=== PATIENT | male | born 1955 | race Caucasian/White ===

== ENCOUNTER 2018-08-01 13:27 | Observation (INO) | payer BC ==
--- NOTE | 2018-08-01 13:52 | ED ---
Dizziness - HPI Summary HPI Summary: This patient is a 63 year old M presenting to [facility] accompanied by his with a chief complaint of dizziness for the past two days. Dizziness is described as room spinning. Dizziness is exacerbated by head movement. Patient reports nausea, vomiting, and occipital and frontal headache. He reports a history of similar symptoms that typically resolve with rest. Patient denies recent URI, CP, SOB, and ear pain. Patient reports a history of lupus, DM , and HTN - History Of Current Complaint Chief Complaint: EDDizziness Stated Complaint: DIZZINESS Time Seen by Provider: 08/01/18 13:40 Hx Obtained From: Patient Onset/Duration: Still Present Timing: Constant Character: Room Spinning Aggravating Factor(s): Change In Head Position Alleviating Factor(s): Nothing Associated Signs And Symptoms: Positive: Nausea. Negative: Chest Pain, SOB - Allergies/Home Medications Allergies/Adverse Reactions: Allergies Allergy/AdvReac Type Severity Reaction Status Date / Time erythromycin base Allergy Hives Verified 08/01/18 14:59 Fish Containing Products Allergy See Comment Verified 08/01/18 14:59 gluten Allergy See Comment Verified 08/01/18 14:59 melon Allergy See Comment Verified 08/01/18 15:43 palm oil Allergy See Comment Verified 08/01/18 15:43 plum Allergy See Comment Verified 08/01/18 15:43 Anima, Nut, and Seed proteins Allergy See Comment Uncoded 09/03/17 10:58 animal proteins Allergy See Comment Uncoded 08/01/18 17:42 Home Medications: Home Medications Aspirin [Aspirin EC] 3 tab PO DAILY 08/01/18 [History Confirmed 08/01/18] Calcium Carbonate CHEW TAB* [Tums*] 1 - 2 tab PO Q4H PRN 08/01/18 [History Confirmed 08/01/18] Insulin Degludec [Tresiba Flextouch U-200] 100 units SUBCUT BEDTIME 08/01/18 [ History Confirmed 08/01/18] Levothyroxine Sodium 200 mcg PO QAM 08/01/18 [History Confirmed 08/01/18] Losartan Potassium [Cozaar] 50 mg PO BEDTIME 08/01/18 [History Confirmed ] Prasterone (Dhea) [Dhea] 50 mg PO BID 08/01/18 [History Confirmed 08/01/18] PMH/Surg Hx/FS Hx/Imm Hx Endocrine/Hematology History: Reports: Hx Diabetes, Other Endocrine/ Hematological Disorders - Lupus Cardiovascular History: Denies: Hx Hypertension, Hx Pacemaker/ICD History: Denies: Hx Dialysis, Hx Renal Disease Sensory History: Denies: Hx Hearing Aid Psychiatric History: Denies: Hx Panic Disorder - Surgical History Surgery Procedure, Year, and Place: [facility] 1978. APPENDIX. CARDIAC STENTS X5 PT DOES NOT HAVE IMPLANT CARDS - [place] [facility] [place] [place] Infectious Disease History: No Infectious Disease History: Denies: Traveled Outside the [place] in Last 30 Days - Family History Known Family History: Positive: Other - father - TIA, mother - vertigo - Social History Alcohol Use: None Alcohol Amount: 2 drinks/week Substance Use Type: Reports: None Smoking Status (MU): Former Smoker Have You Smoked in the Last Year: No Review of Systems Negative: Ear Ache Negative: Chest Pain Negative: Shortness Of Breath Positive: Vomiting, Nausea Neurological: Other - dizziness Positive: Headache All Other Systems Reviewed And Are Negative: Yes Physical Exam Triage Information Reviewed: Yes Vital Signs On Initial Exam: Initial Vitals Temp Pulse Resp BP Pulse Ox 97.3 F 79 16 175/82 99 08/01/18 13:31 08/01/18 13:31 08/01/18 13:31 08/01/18 13:31 08/01/18 13:31 Vital Signs Reviewed: Yes - Amber Coma Scale Best Eye Response: 4 - Spontaneous Best Motor Response: 6 - Obeys Commands Best Verbal Response: 5 - Oriented Coma Scale Total: 15 Diagnostics - Vital Signs Vital Signs Temp Pulse Resp BP Pulse Ox 08/01/18 13:31 97.3 F 79 16 175/82 99 - Laboratory Result Diagrams: 08/01/18 14:37 08/01/18 14:37 Lab Statement: Any lab studies that have been ordered have been reviewed, and results considered in the medical decision making process. - Radiology CXR Radiology Interpretation Completed By: Radiologist - HYPERINFLATION. NO ACTIVE CARDIOPULMONARY DISEASE. ED Physician has reviewed this report. - CT Brain CT CT Interpretation Completed By: Radiologist - NO ACUTE INTRACRANIAL PATHOLOGY. EXOPHTHALMOS. ED Physician has reviewed this report. - EKG 1340 Cardiac Rate: NL - 69 BPM EKG Rhythm: Sinus Rhythm EKG Interpretation: no ST elevations Dizzy Course/Dx - Course Assessment/Plan: This patient is a 63 year old M presenting to [facility] accompanied by his with a chief complaint of dizziness for the past two days. Dizziness is described as room spinning. Dizziness is exacerbated by head movement. Patient reports nausea, vomiting, and occipital and frontal headache. Patient denies recent URI, CP, SOB, and ear pain. Patient reports a history of lupus, DM, and HTN. Neurological exam found to be within normal limits. The NIH score is equal to 0. Patient does not have any nystagmus. In the ED course the patient was given IV fluids, Zofran for nausea vomiting, and meclizine and Ativan for the dizziness. Blood work is found to be within normal limits except for chloride of 99, glucose 258, CRP 11.3, urinalysis is negative for UTI. Chest x-ray impression: Hyperinflation. No active cardiopulmonary disease. Head CT impression: No acute intracranial pathology. Extraocular movements. At this time I reexamined the patient and he is neurological exam is also intact. Then, I tried to ambulate the patient and he still having dizziness and seemed to be having an unsteady gait. Therefore, at this time I ordered an MRI to rule out a posterior infarct. I discussed my physical exam and findings with Dr. Dillon from neurology and he agrees with management at this point. He agrees with admission and he will consult for this patient. He also requested to give him aspirin and statin. At this point I discussed my physical exam, findings and test results with Dr. Monroe from the hospital services who accepted the patient for admission. - Diagnoses Differential Diagnosis/HQI/PQRI: Anxiety, CVA, Dysrhythmia, Labyrinthitis, Meniere's Disease, Seizure, Transient Ischemic Attack, Vasovagal Reaction Provider Diagnoses: Vertigo - Provider Notifications Discussed Care Of Patient With: [place] Monroe - hospitalist Time Discussed With Above Provider: 16:15 Instructed by Provider To: Admit As Inpatient Discharge - Sign-Out/Discharge Documenting (check all that apply): Patient Departure - admit - Discharge Plan Condition: Stable Disposition: ADMITTED TO [facility] - Billing Disposition and Condition Condition: STABLE Disposition: Admitted to [facility] - Attestation Statements Document Initiated by Scribe: Yes Documenting Scribe: Kady Jain Provider For Whom Scribe is Documenting (Include Credential): Neo Mae MD Scribe Attestation: I, Kady Jain, scribed for Neo Mae MD on 08/01/18 at 1844. Scribe Documentation Reviewed: Yes Provider Attestation: The documentation as recorded by the scribe, Kady Jain accurately reflects the service I personally performed and the decisions made by me, Neo Mae MD NIH Scale - NIH Scale Level of Consciousness: Alert/Keenly Responsive Ask Patient the Month and His/Her Age: Both Correct Ask Pt to Open/Close Eyes and Food Beverage Attendant/Release Non-Paretic Hand: Both Correctly Best Gaze (Only Horizontal Eye Movement): Normal Visual Field Testing: No Visual Loss Facial Paresis-Pt to Smile & Close Eyes or Grimace Symmetry: Normal/Symmetrical Motor Function - Right Arm: No Drift-Holds 10 Seconds Motor Function - Left Arm: No Drift-Holds 10 Seconds Motor Function - Right Leg: No Drift-Holds 10 Seconds Motor Function - Left Leg: No Drift-Holds 10 Seconds Limb Ataxia-Must be out of Proportion to Weakness Present: Absent Sensory (Use Pinprick to Test Arms/Legs/Trunk/Face): Normal Best Language (Describe Picture, Name Items): No Aphasia Dysarthria (Read Several Words): Normal Extinction and Inattention: No Abnormality Total Score: 0 Consult Consult: At 16:[address] Dillon, neurologist, to inform him of this patient and his admission to the hospitalist. Dr. Monroe will consult on this patient and recommends giving the patient ASA.
[2018-08-01] MEDS ORDERED: NS 0.9% 1000 ML* 1,000 ML IV ONE (14:14)
[2018-08-01] MEDS ORDERED: Ondansetron ODT TAB* 4 MG PO ONE (14:14)
[2018-08-01] MEDS ORDERED: Meclizine TAB* 12.5 MG PO ONE (14:14)
[2018-08-01] MEDS ORDERED: LORazepam TAB(*) 1 MG PO ONE (14:14)
--- NOTE | 2018-08-01 14:37 | RAD ---
HISTORY: Dizziness COMPARISONS: None TECHNIQUE: Multiple contiguous axial CT scans were obtained of the head without intravenous contrast. FINDINGS: HEMORRHAGE/INFARCT: There is no hemorrhage or acute infarct. MASSES/SHIFT: There is no mass or shift. EXTRA-AXIAL SPACES: There are no extra-axial fluid collections. SULCI AND VENTRICLES: The sulci and ventricles are normal in size and position for the patient's stated age. CEREBRUM: There are no focal parenchymal abnormalities. BRAINSTEM: There are no focal parenchymal abnormalities. CEREBELLUM: There are no focal parenchymal abnormalities. VESSELS: The vessels are grossly normal. PARANASAL SINUSES: The paranasal sinuses are clear. ORBITS: There is bilateral proptosis. BONES AND SOFT TISSUE: No bone or soft tissue abnormalities are noted. OTHER: None IMPRESSION: NO ACUTE INTRACRANIAL PATHOLOGY. EXOPHTHALMOS.
[2018-08-01 14:48] LABS: ABS Basophils 0 10^3/ul (0-0.2); ABS Eosinophils 0.1 10^3/ul (0-0.6); ABS Lymphocytes 0.6 10^3/ul (1.0-4.8); ABS Monocytes 0.5 10^3/ul (0-0.8); ABS Neutrophils 4.6 10^3/ul (1.5-7.7); ABS Nucleated RBC 0 10^3/ul; Hematocrit 45 % (42-52); Hemoglobin 15.6 g/dl (14.0-18.0); Lymphocyte % 10.4 % (25-47); Mean Corpuscular HGB Conc 35 g/dl (31-36); Mean Corpuscular Hemoglobin 31 pg (27-31); Mean Corpuscular Volume 90 fL (80-94); Mean Platelet Volume 7.1 um3 (7.4-10.4); Nucleated Red Blood Cells % 0.2; Platelet Count 216 10^3/ul (150-450); Red Blood Count 4.98 10^6/ul (4.00-5.40); Red Cell Distribution Width 14 % (10.5-15); White Blood Count 5.8 10^3/ul (3.5-10.8)
--- NOTE | 2018-08-01 14:55 | RAD ---
HISTORY: Dizziness COMPARISONS: May 01, 2015 VIEWS: 2: Frontal and lateral views of the chest. FINDINGS: CARDIOMEDIASTINAL SILHOUETTE: The cardiomediastinal silhouette is normal. BRITTANY: The brittany are normal. PLEURA: The costophrenic angles are sharp. No pleural abnormalities are noted. LUNG PARENCHYMA: There is hyperinflation with flattening of the diaphragm and expansion of the AP diameter of the chest. ABDOMEN: The upper abdomen is clear. There is no subphrenic gas. BONES AND SOFT TISSUES: Degenerative changes are noted along the spine. OTHER: None. IMPRESSION: HYPERINFLATION. NO ACTIVE CARDIOPULMONARY DISEASE.
[2018-08-01 14:58] LABS: INR 0.89 (0.77-1.02)
[2018-08-01 15:05] LABS: EGFR Non-African American 112.8 (>60)
[2018-08-01 16:04] LABS: Urine Appearance Clear; Urine Blood Negative (Negative); Urine Color Yellow; Urine Ketones Negative (Negative); Urine Protein Negative (Negative); Urine Specific Gravity 1.015 (1.010-1.030); Urine Urobilinogen Negative (Negative)
[2018-08-01] MEDS ORDERED: Aspirin 81 mg CHEW TAB* 81 MG TAB.CHEW PO ONE (16:30)
[2018-08-01] MEDS ORDERED: Simvastatin TAB(NF) 20 MG TAB PO ONE (16:31)
[2018-08-01] MEDS ORDERED: Atorvastatin* 10 MG TAB PO ONE (16:40)
--- NOTE | 2018-08-01 16:45 | ADMNOTE ---
Subjective Date of Service: 08/01/18 Interval History: ADMISSION HISTORY AND PHYSICAL EXAM: Allergies Allergy/AdvReac Type Severity Reaction Status Date / Time erythromycin base Allergy Hives Verified 08/01/18 14:59 Fish Containing Products Allergy See Comment Verified 08/01/18 14:59 gluten Allergy See Comment Verified 08/01/18 14:59 melon Allergy See Comment Verified 08/01/18 15:43 palm oil Allergy See Comment Verified 08/01/18 15:43 plum Allergy See Comment Verified 08/01/18 15:43 Anima, Nut, and Seed proteins Allergy See Comment Uncoded 09/03/17 10:58 Home Medications Medication Instructions Recorded Confirmed Type Albuterol HFA INHALER* [Ventolin 2 puff INH Q6H PRN 07/15/16 09/03/17 History HFA Inhaler*] Aspirin EC TAB* [Ecotrin EC TAB*] 3 tab PO DAILY 07/15/16 09/03/17 History Cholecalciferol (Vitamin D3) 3,000 units PO DAILY 07/15/16 09/03/17 History [Vitamin D] Hydroxychloroquine TAB* [Plaquenil 1 tab PO BID 07/15/16 09/03/17 History TAB*] Levothyroxine TAB* [Synthroid TAB*] 1 tab PO DAILY 07/15/16 09/03/17 History Losartan Potassium 1 tab PO DAILY 07/15/16 09/03/17 History Multivitamins/Minerals TAB* 1 tab PO DAILY 07/15/16 09/03/17 History [Theragran/minerals TAB*] Omeprazole CAP* [Prilosec CAP* 20 1 tab PO DAILY 07/15/16 09/03/17 History MG] metFORMIN* [Glucophage*] 1 tab PO BID 07/15/16 09/03/17 History Levothyroxine TAB* [Synthroid TAB*] 2 tab PO DAILY 07/16/16 09/03/17 History Prasterone (Dhea) [Dhea 50] 50 mg PO BID 09/25/16 09/03/17 History Belimumab(NF) [Benlysta(NF)] 120 mg IV MONTHLY 10/30/16 09/03/17 History Tizanidine HCl 1 - 2 cap PO BEDTIME PRN 10/30/16 09/03/17 History traZODone TAB* [Desyrel TAB*] 50 mg PO BEDTIME 10/30/16 09/03/17 History glipiZIDE TAB* [Glucotrol TAB*] 5 mg PO DAILY 07/09/17 09/03/17 History Tresiba Flextouch 25 mg INJ DAILY 09/03/17 09/03/17 History HPI: The patient states he has had vertigo for about 2 months It occurs when he changes position, either sitting up or laying down. No LOC. Some nauses. worse the past few days. Family History: Findings - cousins with SLE, MS. immediate fam hx DM, heart disease. Social History: Findings - Quit smoking age 32. No alcohol abuse. Lives with his who is his SDM. Past Medical History: Findings - Appy age 8. Lumbar laminectomy. Coronary stents 2000 and 2002. SLE ? since childhood. Review of Systems - Measurements Intake and Output: Intake and Output Last 24 Hours 07/30/18 07/31/18 08/01/18 08/02/18 06:59 06:59 06:59 06:59 Intake Total 1000 Balance 1000 Weight 230 lb Intake: IV Fluids 1000 - Review of Systems Constitutional Symptoms: Positive: Weight Gain - 9 pounds Dermatology: Positive: Normal HEENT: Positive: Normal Eyes: Positive: Normal Thyroid: Positive: Other - hx Grave's disease Pulmonary: Positive: Normal Cardiology: Positive: Normal Gastroenterology: Positive: Nausea Genital - Urinary: Positive: Normal Musculoskeletal: Positive: Joint Pain Endocrinology: Positive: Thyroid Problems, Diabetes Mellitus Hematologic/Lymphatic: Negative: Anemia, Easy Brusing, Hx Leukemia, Hx Lymphoma, Use of Anticoagulant, Use of Antiplatelet Drugs, Other Neurology: Positive: Other - vertigo Psychiatry: Positive: Normal Allergic/Immunologic: Negative: Hx Anaphylaxis, Hx Angioedema, Hx Environmental, Hx Seasonal, Athsma, Hx HIV, Immunocompromise, Swollen Glands LymphNodes, Other Objective Vital Signs - 8 hr 08/01/18 08/01/18 08/01/18 13:31 13:47 13:48 Temperature 97.3 F Pulse Rate 79 78 Respiratory 16 13 14 Rate Blood Pressure 175/82 182/96 (mmHg) O2 Sat by Pulse 99 96 Oximetry 08/01/18 08/01/18 08/01/18 14:00 14:18 14:36 Temperature Pulse Rate 73 70 Respiratory 13 6 18 Rate Blood Pressure 144/81 (mmHg) O2 Sat by Pulse 95 95 Oximetry 08/01/18 08/01/18 08/01/18 14:49 14:50 14:51 Temperature Pulse Rate 70 81 78 Respiratory Rate Blood Pressure 164/86 181/91 188/89 (mmHg) O2 Sat by Pulse Oximetry 08/01/18 08/01/18 08/01/18 15:00 15:19 15:55 Temperature Pulse Rate 67 69 71 Respiratory 10 14 Rate Blood Pressure 139/69 157/77 (mmHg) O2 Sat by Pulse 97 97 97 Oximetry 08/01/18 08/01/18 16:00 16:19 Temperature Pulse Rate 70 69 Respiratory 16 Rate Blood Pressure 163/77 (mmHg) O2 Sat by Pulse 99 97 Oximetry Oxygen Devices in Use Now: None Appearance: Alert, supine on ED stretcher. In good spirits. Looks comfortable. Eyes: No Scleral Icterus Neck: NL Appearance and Movements; NL JVP, - - Thyroid diffusely enlarged. Respiratory: Symmetrical Chest Expansion and Respiratory Effort, Clear to Auscultation, Clear to Percussion Cardiovascular: NL Sounds; No Murmurs; No JVD, RRR, No Edema, - Abdominal: NL Sounds; No Tenderness; No Distention, No Hepatosplenomegaly, - Extremities: No Edema, No Clubbing, Cyanosis, - Skin: No Rash or Ulcers, No Nodules or Sclerosis, - Neurological: Alert and Oriented x 3 - mild nystagmus on lateral gaze BL, NL Sensation Result Diagrams: 08/01/18 14:37 08/01/18 14:37 Assess/Plan/Problems-Billing Assessment: - Patient Problems (1) Vertigo Current Visit: Yes Status: Acute Code(s): R42 - DIZZINESS AND GIDDINESS SNOMED Code(s): 141848378 Comment: Patient takes 3 ASA daily at home "for inflammation." He has tried several statins in the past and had joint pains with each of them. MRI could not be done until Friday, perhaps could be done as an oupt. Tele. Dr. Vallejo to consult. (2) Diabetes Current Visit: Yes Status: Acute Code(s): E11.9 - TYPE 2 DIABETES MELLITUS WITHOUT COMPLICATIONS SNOMED Code(s): 96330785 Comment: Normally takes 100 U long-acting insulin at bedtime, will start with 60 U here plus SSI. 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 Continue ASA. (4) CAD (coronary artery disease) Current Visit: Yes Status: Acute Code(s): I25.10 - ATHSCL HEART DISEASE OF [place] CORONARY ARTERY W/O ANG PCTRS SNOMED Code(s): 87591193 Comment: Patient is a vegan. No obstructive CAD on cath 2015. (5) HTN (hypertension) Current Visit: Yes Status: Acute Code(s): I10 - ESSENTIAL (PRIMARY) HYPERTENSION SNOMED Code(s): 82778753 Comment: Start with half his usual dose of losartan 08/02. (6) Hypothyroid Current Visit: Yes Status: Acute Code(s): E03.9 - HYPOTHYROIDISM, UNSPECIFIED SNOMED Code(s): 27972806 Comment: TSH wnl 08/01/18. Continue home dose levothryoxine.
[2018-08-01] MEDS ORDERED: Calcium Carbonate CHEW TAB* 500 MG (TUMS) PO PRN (17:16)
[2018-08-01] MEDS ORDERED: tiZANidine TAB* 2 MG PO PRN (17:16)
[2018-08-01] MEDS ORDERED: Albuterol HFA INHALER* 8 gm MDI INH PRN (17:16)
[2018-08-01] MEDS ORDERED: Dextrose 50% Syringe 50 ML* 25 GM/50 ML SYRINGE IV PUSH PRN (17:27)
[2018-08-01] MEDS: Enoxaparin(*) 40 MG/0.4 ML SYR SUBCUT SCH (19:24)
[2018-08-01] MEDS ORDERED: Aspirin EC TAB* 325 MG PO SCH (21:00)
[2018-08-01] MEDS ORDERED: Losartan TAB* 25 MG PO SCH (21:00)
[2018-08-01] MEDS ORDERED: Insulin GLARGINE(*) 1 UNITS UNIT SUBCUT SCH (21:00)
[2018-08-01] MEDS: Insulin LISPRO* 1 UNITS UNIT SUBCUT SCH (21:59)
[2018-08-01] MEDS ORDERED: Oxymetazoline 0.05% NASAL SPR* 15 ML BTL BOTH NARES PRN (22:17)
[2018-08-02] MEDS ORDERED: Levothyroxine TAB* 25 MCG TAB PO SCH (06:00)
[2018-08-02] MEDS ORDERED: Levothyroxine TAB* 100 MCG TAB PO SCH (06:00)
[2018-08-02] MEDS: Insulin LISPRO* 1 UNITS UNIT SUBCUT SCH ×3 (08:51→17:19)
[2018-08-02] MEDS ORDERED: Aspirin EC TAB* 325 MG PO SCH (09:00)
--- NOTE | 2018-08-02 12:15 | PN ---
Subjective Date of Service: 08/02/18 Interval History: continue to c/o dizziness, but states that it has improved since admission. Denies chest pain or shortness of breath. denies abd pain. reports occasional nausea. denies d/v. Family History: Unchanged from Admission - cousins with SLE, MS. immediate fam hx DM, heart disease. Social History: Unchanged from Admission - Quit smoking age 32. No alcohol abuse. Lives with his who is his SDM. Past Medical History: Unchanged from Admission - Appy age 8. Lumbar laminectomy. Coronary stents 2000 and 2002. SLE ? since childhood. Objective Active Medications: Albuterol (Ventolin Hfa Inhaler*) 2 puff INH Q6H PRN PRN Reason: WHEEZING Aspirin (Ecotrin Ec Tab*) 975 mg PO QAM [facility] Last Admin: 08/02/18 08:54 Dose: 975 mg Calcium Carbonate (Tums*) 500 mg PO Q4H PRN PRN Reason: INDIGESTION Dextrose (D50w Syringe 50 Ml*) 12.5 gm IV PUSH .FOR FS < 60 - SS PRN PRN Reason: FS < 60 Enoxaparin Sodium (Lovenox(*)) 40 mg SUBCUT Q24H [facility] Last Admin: 08/01/18 19:24 Dose: 40 mg Insulin Glargine (Lantus(*)) 60 units SUBCUT Q24H [facility] Last Admin: 08/01/18 21:58 Dose: 60 units Insulin Human Lispro (Humalog*) 0 units SUBCUT ACHS [facility]; Protocol Last Admin: 08/02/18 08:51 Dose: Not Given Levothyroxine Sodium (Synthroid Tab*) 200 mcg PO 0600 [facility] Last Admin: 08/02/18 05:36 Dose: 200 mcg Levothyroxine Sodium (Synthroid Tab*) 25 mcg PO 0600 [facility] Last Admin: 08/02/18 05:36 Dose: 25 mcg Losartan Potassium (Cozaar Tab*) 50 mg PO BEDTIME [facility] Last Admin: 08/01/18 21:02 Dose: 50 mg Oxymetazoline HCl (Afrin 0.05% Nasal [place]*) 1 spray BOTH NARES BEDTIME PRN PRN Reason: nasal congestion Last Admin: 08/01/18 22:50 Dose: 1 spray Tizanidine HCl (Zanaflex Tab*) 1 mg PO BEDTIME PRN PRN Reason: muscle spasm Vital Signs - 8 hr 08/02/18 08/02/18 07:42 11:40 Temperature 97.5 F 98.0 F Pulse Rate 67 67 Respiratory 16 16 Rate Blood Pressure 136/63 132/73 (mmHg) O2 Sat by Pulse 98 95 Oximetry Oxygen Devices in Use Now: None Appearance: sitting on the edge of the bed , no acute distress Eyes: No Scleral Icterus Ears/Nose/Mouth/Throat: Clear Oropharnyx, Mucous Membranes Moist Neck: NL Appearance and Movements; NL JVP, Trachea Midline Respiratory: Symmetrical Chest Expansion and Respiratory Effort, Clear to Auscultation Cardiovascular: NL Sounds; No Murmurs; No JVD, No Edema Abdominal: NL Sounds; No Tenderness; No Distention Extremities: No Edema, No Clubbing, Cyanosis Skin: No Rash or Ulcers Neurological: Alert and Oriented x 3 Nutrition: Taking PO's Result Diagrams: 08/01/18 14:37 08/01/18 14:37 Assess/Plan/Problems-Billing Assessment: Mr. Sweeney is a 63 y.o male with a PMHX of lupus, HTN , DM who presented to the emergency room with 2 days of persistent dizziness. - Patient Problems (1) Vertigo Status: Acute Code(s): R42 - DIZZINESS AND GIDDINESS SNOMED Code(s): 858179660 Comment: Patient takes 3 ASA daily at home "for inflammation." -He has tried several statins in the past and had joint pains with each of them. - Dr. Dillon is recommending MRI W/WO contrast as inpatient - negative - Meclizine - Dr. Dillon to consulted - recommended PT for vestibular rehab, to follow up with Dr. Levy Langford in [place] (2) CAD (coronary artery disease) Status: Acute Code(s): I25.10 - ATHSCL HEART DISEASE OF [place] CORONARY ARTERY W/O ANG PCTRS SNOMED Code(s): 46656329 Comment: Patient is a vegan. No obstructive CAD on cath 2015. - conitnue losartan (3) Diabetes Status: Acute Code(s): E11.9 - TYPE 2 DIABETES MELLITUS WITHOUT COMPLICATIONS SNOMED Code(s): 04483867 Comment: fingersticks - Latus 60 units at HS -Lispro sliding scale (4) HTN (hypertension) Status: Acute Code(s): I10 - ESSENTIAL (PRIMARY) HYPERTENSION SNOMED Code(s) : 53467970 Comment: continue losartan (5) Hypothyroid Status: Acute Code(s): E03.9 - HYPOTHYROIDISM, UNSPECIFIED SNOMED Code(s): 41873429 Comment: TSH wnl 08/01/18. Continue home dose levothryoxine. 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 Continue ASA. - Plaquenil continue BID (7) DVT prophylaxis Status: Acute Code(s): BRF9309 - SNOMED Code(s): 631276603 Comment: Viktor (8) Full code status Status: Acute Code(s): Z78.9 - OTHER SPECIFIED HEALTH STATUS SNOMED Code(s) : 497735875 Status and Disposition: OBV- discharge
[2018-08-02] MEDS ORDERED: Meclizine TAB* 12.5 MG PO PRN (12:27)
[2018-08-02] MEDS ORDERED: Gadoteridol* (CONTRAST) 279.3 MG/ML 10 ML IV ONE (14:10)
--- NOTE | 2018-08-02 14:40 | RAD ---
HISTORY: dizziness, h/o lupus, r/o CVA COMPARISONS: Head CT dated August 01, 2018 TECHNIQUE: The following sequences were obtained of the head: Sagittal T1-weighted images, axial T2-weighted images, axial FLAIR images, axial susceptibility weighted images, axial T1-weighted images. Additionally, axial diffusion-weighted images were obtained with calculated apparent diffusion coefficients. Additionally, sagittal, coronal, and axial T1-weighted images were obtained after contrast enhancement with a gadolinium-based intravenous contrast agent. FINDINGS: HEMORRHAGE/INFARCT: There is no hemorrhage or acute infarct. MASSES/SHIFT: There is no mass or shift. EXTRA-AXIAL SPACES/MENINGES: There are no extra-axial fluid collections. SULCI AND VENTRICLES: There is mild diffuse and proportional enlargement of the sulci and ventricles. CEREBRUM: There are no focal parenchymal abnormalities. BRAINSTEM: There are no focal parenchymal abnormalities. CEREBELLUM: There are no focal parenchymal abnormalities. The cerebellar tonsils are normal in size and position. SELLA: The sella is normal. PINEAL: The pineal region is clear. CP ANGLE/TEMPORAL BONES: The labyrinthine structures are grossly normal. VESSELS: Normal flow-voids are noted within the visualized vertebral vasculature. DIFFUSION ABNORMALITIES: There are no diffusion abnormalities. PARANASAL SINUSES/MASTOIDS: The paranasal sinuses are clear. ORBITS: The orbits are unremarkable. BONES AND SOFT TISSUE: No bone or soft tissue abnormalities are noted. OTHER: There is no abnormal enhancement. IMPRESSION: UNREMARKABLE MRI OF THE BRAIN. THERE IS NO ABNORMAL ENHANCEMENT. THERE IS NO RESTRICTED DIFFUSION TO SUGGEST ACUTE INFARCT.
[2018-08-02 18:01] VITALS: BP 132/60
[2018-08-02] MEDS: Enoxaparin(*) 40 MG/0.4 ML SYR SUBCUT SCH (18:57)
--- NOTE | 2018-08-02 20:50 | CONS ---
CONSULTATION REPORT: DATE OF CONSULT: 08/02/18 PATIENT OF: Dr. Krause and Dr. Gómez. HISTORY OF PRESENT ILLNESS: This is a 63-year-old right-handed man who has a several-month history of room spinning. This is worse with position and it usually lasts a few hours, but he comes in because it has been lasting for a couple of days. It will fluctuate, but he will have significant nausea with it and it is worse with changes in position. He has had chronic tinnitus for years. It has been unchanging. Of note, his mother when she was in her 90s had severe room spinning dizziness. Also of note, he has had 2 MRI scans in the past, which raised the possibility of a compensated hydrocephalus. No MRI scans in the past couple of decades. The second MRI scan he said they thought it just showed atrophy rather than hydrocephalus, but it is apparently unclear. He also has a history of lupus and diabetes as well as Graves' disease. He has been tested for celiac and was found to be negative. PAST SURGICAL HISTORY: He is status post lumbar laminectomy and coronary stents in 2000 and 2002. MEDICATIONS: On admission include: 1. Zanaflex 1 mg at bedtime p.r.n. 2. Afrin 1 spray nasally p.m. 3. Cozaar 50 mg at bedtime. 4. Synthroid 25 mcg daily. 5. Synthroid 200 mcg daily. 6. Aspirin, he says 3 tabs daily. I will confirm that. 7. DHEA 50 mg b.i.d. 8. Benlysta 120 mg IV monthly. 9. Plaquenil 200 mg b.i.d. 10. Glucophage 1 tab b.i.d. ALLERGIES: Include MELON, PALM OIL, PLUM, ANIMAL PROTEINS, ERYTHROMYCIN BASE. FAMILY HISTORY: There is a family history of cousins with SLE and MS. SOCIAL HISTORY: He does not smoke, drink or use drugs. He quit smoking at age 32. REVIEW OF SYSTEMS: Negative in all 14 spheres other than in the HPI. PHYSICAL EXAMINATION: Temperature 97.5, pulse 60, respirations 20, blood pressure 114/48. He is alert and oriented with normal speech and comprehension. Cranial nerves II through XII were intact other than he had prominent eyes. When he turns his head, he had 4 to 5 beats nystagmus and lateral gaze in both directions and he had a sensation of room spinning. Discs were sharp. Motor exam revealed normal tone and strength. Reflexes were 1+. Gait was narrow based, but he turned slowly to limit his vertigo. Sensation intact to light touch and vibration. Reflexes 1 and equal. Chest: Clear. Cardiovascular: Regular rate and rhythm. Abdomen is soft with positive bowel sounds. DIAGNOSTIC STUDIES/LAB DATA: CT scan of his head was reviewed. It showed mild atrophy and mildly prominent ventricles. There was excellent Labs include normal white count, INR, PTT, normal CMP other than a chloride of 99, glucose of 258. Total bili of 1.3. C-reactive protein of 11. TSH of 2.87. UA had 2+ glucose. Toxicology was negative for alcohol. ASSESSMENT AND PLAN: [place] has positional vertigo with room spinning and nausea. This most likely is secondary to peripheral labyrinthitis rather than a central process and it has been intermittent and associated with tinnitus. It is conceivable that this is related to cerebellar ischemia, but it is highly unlikely. With this pattern, is possible that it is related to his lupus or increased neuroma, both possibilities are unlikely, but he does need an MRI scan with and without contrast for further evaluation. He is on a large dose of aspirin, which could contribute to his tinnitus and I will double check the reason and it is possible that he can go down to just 1 aspirin a day. He should also have a physical therapy for maneuvers to make sure that this is not secondary to grit in the inner ear. Dr. Nunez will be following up on him as an inpatient, will be glad to see him as an outpatient and discuss. If this is recurrent labyrinthitis, this could be difficult to treat, possibly meclizine may be of some benefit and this has apparently been tried in the ER, but he was not aware of it, I am not sure of the results of that trial. [id number]/[facility] #: [id number] [facility]
--- NOTE | 2018-08-03 06:29 | DS ---
CC: Dr. Dillon * DISCHARGE SUMMARY: DATE OF ADMISSION: 08/01/18 DATE OF DISCHARGE: 08/02/18 PROVIDER: Melly Suarez NP ATTENDING PHYSICIAN: Dr. Poonam Krause * (dictated by Melly Suarez NP). PRIMARY CARE PROVIDER: Dr. Nicholas Gómez. PRIMARY DIAGNOSIS: Vertigo. SECONDARY DIAGNOSES: 1. Hypothyroid. 2. Hypertension. 3. Coronary artery disease. 4. Systemic lupus erythematosus. 5. Diabetes. STUDIES COMPLETED WHILE IN THE HOSPITAL: He had a CT of the brain on 08/01/18. Radiologist's impression: No acute intracranial pathology. Exophthalmos. He had a chest x-ray. Radiologist's impression: Hyperinflation. No active cardiopulmonary disease. He had an MRI of the brain on 08/02/18. Radiologist' s impression: Unremarkable MRI of the brain. There is no abnormal enhancement. There is no restricted diffusion to suggest acute infarct. He had an EKG, which is sinus rhythm at a rate of 69. DISCHARGE MEDICATIONS: New home medication: Meclizine 25 mg p.o. q.8 hours as needed for dizziness. CONTINUED HOME MEDICATIONS: 1. DHEA 50 mg p.o. b.i.d. 2. Levothyroxine 225 mcg p.o. daily. 3. Losartan 50 mg p.o. at bedtime. 4. Albuterol 2 puffs q.6 hours as needed for shortness of breath. 5. Aspirin 3 tablets p.o. daily. 6. Calcium carbonate chew 1 to 2 tablets p.o. q.4 hours. 7. Tresiba FlexTouch 100 units subcu at bedtime. 8. Plaquenil 200 mg p.o. b.i.d. 9. Multivitamin 1 p.o. daily. 10. Vitamin D3 2000 units p.o. b.i.d. 11. Metformin 1000 mg p.o. b.i.d. 12. Tizanidine 1 to 2 mg p.o. at bedtime. HISTORY OF PRESENT ILLNESS AND HOSPITAL COURSE: The patient reports that he had vertigo about 2 months ago, it occurred when he changed positions either sitting or lying down. No loss of consciousness, no nausea. Worse over the past few days, so he presented to the emergency room for further evaluation. REVIEW OF SYSTEMS: He does report some joint pain. Denies easy bruising. Denies any headache. Only reports some dizziness. Denies any vomiting or diarrhea. Due to his symptoms, we were asked to see and evaluate him by the emergency room for admission. While in the hospital, the patient was seen and evaluated by Dr. Dillon from Neurology, who thought this was related to benign paroxysmal vertigo. He recommended getting an MRI with and without contrast, which was completed during this hospitalization, which showed no acute infarct and the MRI was within normal limits. Dr. Dillon was consulted and recommended that the patient be discharged home with vertigo. He could be placed on meclizine for dizziness and he recommended vestibular rehab and follow up with Dr. Levy Langford in [place] for further evaluation. The patient reports that his dizziness has improved since Friday. He does feel better today. Reports the dizziness is not as severe. At this time, the patient is stable for discharge home. Blood pressure 132/60, temperature was 97.4, heart rate was 73, respirations 20, O2 saturation 95% on room air. DISCHARGE PLAN: Mr. Sweeney will be discharged back home. Activity as tolerated. He should not drive a vehicle or operate heavy machinery until he is cleared by his primary care physician. He should continue on a heart-healthy, low-sodium diet. 1. Vertigo. He can take meclizine 25 mg p.o. q.8 hours as needed for dizziness. He should go to Physical Therapy for vestibular rehab. A prescription has been provided. He should follow up with his primary care provider in 4 to 7 days. He should not drive or operate heavy machinery until cleared by his primary care provider. There were no home medication changes during this hospitalization. He should resume all of his other medications as previously prescribed. The patient should return to the emergency room for any severe headache, severe dizziness, loss of consciousness, chest pain, shortness of breath, or any other concerning symptoms. This is a summarization of his hospitalization. For further details, please obtain the entire medical record. TIME SPENT: Time spent on this discharge was approximately 60 minutes, greater than half that time was spent with the patient discussing discharge plans and implementing my plans. I have discussed this plan with my attending, Dr. Poonam Krause. She is in agreement with my plan. CONDITION ON DISCHARGE: Stable. MELLY SUAREZ, PRACTICE OFFICE ASSOCIATE [id number]/[facility] #: [id number] JON
== END 2018-08-02 18:26 | disposition home or self-care (01) ==
LOC: ED 13:27 → MEDTELE 17:14
PROVIDERS: ADMIT Internal Medicine; ATTEND Hospitalist
DX: R42 Dizziness and giddiness (principal); E03.9 Hypothyroidism, unspecified; I10 Essential (primary) hypertension; I25.10 Atherosclerotic heart disease of native coronary artery without angina pectoris; M32.9 Systemic lupus erythematosus, unspecified; E11.9 Type 2 diabetes mellitus without complications; Z79.82 Long term (current) use of aspirin; Z79.899 Other long term (current) drug therapy; Z88.1 Allergy status to other antibiotic agents
CPT/HCPCS: 36415; 70450; 70553; 71046; 80053; 80320; 81003; 82550; 83605; 83735; 83880; 84443; 84484; 85025; 85610; 85730; 86140; 93005; 96360; 99284; A9270-GY; A9579; G0378; G0480; J1650